=== PATIENT | male | born 1945 ===

== ENCOUNTER 2017-11-03 13:26 | Day surgery (SDC) | payer MEDICARE ==
[~2017-11-03] VITALS: Ht 177.8 cm; Wt 100.0 kg
[2017-11-03 14:04] VITALS: BP 110/69; PULSE 86; RESP 20; TEMP 97.8; O2SAT 97
[2017-11-03 14:41] LABS: AUTOMATED NEUTROPHIL # 6.4 TH/MM3 (1.8-7.7); BASOPHIL # 0.1 TH/MM3 (0-0.2); BASOPHIL % 0.6 % (0.0-2.0); EOSINOPHIL # 0.3 TH/MM3 (0-0.4); EOSINOPHIL % 3.2 % (0.0-4.0); HEMATOCRIT 36.6 % (39.0-51.0); HEMOGLOBIN 11.8 GM/DL (13.0-17.0); LYMPH % 12.6 % (9.0-44.0); LYMPHOCYTE # 1.1 TH/MM3 (1.0-4.8); MEAN CELL VOLUME 78.1 FL (80.0-100.0); MEAN CORPUSCULAR HEMOGLOBIN 25.2 PG (27.0-34.0); MEAN CORPUSCULAR HGB CONC 32.3 % (32.0-36.0); MEAN PLATELET VOLUME 6.9 FL (7.0-11.0); MONO % 8.2 % (0.0-8.0); MONOCYTE # 0.7 TH/MM3 (0-0.9); NEUT % 75.4 % (16.0-70.0); PLATELET COUNT 550 TH/MM3 (150-450); RED BLOOD COUNT 4.68 MIL/MM3 (4.50-5.90); RED CELL DISTRIBUTION WIDTH 16.6 % (11.6-17.2); WHITE BLOOD COUNT 8.6 TH/MM3 (4.0-11.0)
[2017-11-03] MEDS ORDERED: ROSU1TAB8 PO (14:44)
[2017-11-03] MEDS ORDERED: VITACAP7 PO (14:44)
[2017-11-03] MEDS ORDERED: ASPI-516 CHEW (14:44)
[2017-11-03] MEDS ORDERED: LISI-515 PO (14:44)
[2017-11-03] MEDS ORDERED: MOBI15TA PO (14:44)
[2017-11-03] MEDS ORDERED: LORA1CHW2 CHEW (14:44)
[2017-11-03] MEDS ORDERED: TRAM50TA PO (14:44)
[2017-11-03] MEDS ORDERED: VOLT1GEL16 (14:44)
[2017-11-03 14:52] LABS: INTERNATIONAL NORMALIZED RATIO 1.1 RATIO; PROTHROMBIN TIME - PATIENT 10.7 SEC (9.8-11.6)
[2017-11-03] MEDS ORDERED: SODIUM CHLORID 0.9% 500 ML IV PRN (15:15)
[2017-11-03] MEDS ORDERED: LACTATED RINGER'S 1000 ML IV PRN (15:15)
[2017-11-03] MEDS ORDERED: METOPROLOL TARTRATE 25 MG TAB PO PRN (15:15)
[2017-11-03] MEDS ORDERED: INSULIN HUMAN REGULAR 1,000 UNITS/10 ML VIAL SQ PRN (15:15)
[2017-11-03] MEDS ORDERED: CHLORHEXIDINE GLUCONATE 2 % 1 PACK (2 CLOTHS) TOPICAL PRN (15:15)
[2017-11-03] MEDS ORDERED: POVIDONE IODINE 5% (ANTISEPSIS KIT) 4 APPLICATIONS EACH NARE PRN (15:15)
[2017-11-03 15:26] LABS: BICARBONATE 23.3 MEQ/L (21.0-32.0); CREATININE 1.71 MG/DL (0.60-1.30)
[2017-11-03] MEDS ORDERED: DO NOT ADM ANY ANTICOAGULANT DRUGS PRN (16:10)
[2017-11-03] MEDS ORDERED: *RESP: ALBUTEROL 2.5 MG/3 ML NEB (PRN) PERIprocedural Use ONLY NEB ONE (16:31)
[2017-11-03] MEDS ORDERED: LACTATED RINGER'S 1000 ML INJ 500 ML IV SCH (16:45)
[2017-11-03 17:25] VITALS: BP 99/71; PULSE 60; RESP 16; TEMP 97.6; O2SAT 94
[2017-11-03 17:40] VITALS: BP 124/65; PULSE 60; RESP 16; O2SAT 94
--- NOTE | 2017-11-03 22:03 | MR ---
cc: FLORA HINES M.D. DATE: 11/03/2017 PROCEDURE Fiberoptic bronchoscopy, flexible. REASON FOR BRONCHOSCOPY Bilateral lung densities, rule out underlying malignancy. Fiberoptic bronchoscopy via LMA. DETAILS Vocal cords intact. Trachea mildly hyperemic. Lorene sharp. Right mainstem bronchus, right upper, middle and lower lobes, left main bronchus, left upper lower lobes inspected. No obstructive pathology or mass lesion seen. Washings obtained from the both sides of the tracheobronchial tree for routine TB, fungal cultures as well as cytological exam. Cytologic brush biopsies left lower lung obtained as well and sent for cytological exam. Procedure well tolerated. The patient transferred to recovery stable condition. IMPRESSION 1. Mild moderate tracheobronchitis. 2. No obstruction. No mass lesion. 3. Samples obtained as above. 4. Procedure well tolerated. 5. The patient transferred to recovery in stable condition. Flora Hines MD WWW/EDGAR /4:21 PM /9:43 PM
== END 2017-11-03 17:50 | disposition home or self-care (01) ==
LOC: HROP 13:26 → EDBD 13:26 → HRIP 13:27 → HROP 17:50
PROVIDERS: ATTEND Internal Medicine Sleep Medicine
DX: J98.4 Other disorders of lung (principal); J44.9 Chronic obstructive pulmonary disease, unspecified; B96.89 Other specified bacterial agents as the cause of diseases classified elsewhere; J40 Bronchitis, not specified as acute or chronic
CPT/HCPCS: 31625; 80048; 85025; 85610; 85730; 87015; 87070; 87102; 87116; 87205; 87206; 88112; 88305; J7120; J7613